=== PATIENT | male | born 1960 | race Caucasian/White ===

== ENCOUNTER → 2018-03-02 | Outpatient (CLI) | payer BC ==
--- NOTE | 2018-03-03 09:17 | PCVCIMAG ---
APPROVED REPORT Study performed: 03/02/2018 15:41:09 Exam: Stress Echocardiogram Indication: Chest pressure,fatigue, Patient Location: Echo lab Stress Nurse: Rubina Nesbitt RN Room #: 2 Status: routine Ht: 5 ft 11 in HR: 72 bpm BP: 100/70 mmHg Rhythm: NSR with T wave abnormality Medical History Medical History: No history of CAD Cardiac Risk Factors: FHX of CAD Previous Cardiac Procedures: none Pretest Chest Pain Characteristics: No chest pain Exercise History: Physically active Procedure The patient underwent an Exercise Stress Test using the Constantino Protocol. Blood pressure, heart rate, and EKG were monitored. An Echocardiogram was performed by mix technician in four stages in quad fashion. At peak stress, four selected images were obtained and placed side by side with resting images for comparison. Stress Test Details Stress Test: Exercise stress testing was performed using a Constantino protocol. HR Resting HR: 72 bpmMax Heart Rate (APMHR): 164 bpm Max HR Achieved: 162 bpmTarget HR (85% APMHR): 139 bpm % of APMHR: 98 Recovery HR: 96 bpm HR response to stress: Normal HR response to stress BP Resting BP: 100/70 mmHg Max BP: 120/68 mmHg Recovery BP: 126/60 mmHg ECG Resting ECG: Sinus Rhythm, nonspecific T abnormalities Stress ECG: Sinus Rhythm, nonspecific T abnormalities ST Change: Non-ischemic Arrhythmia: Rare PVCs Recovery ECG: Sinus Rhythm, nonspecific ST-T abnormalities Recovery ST Change: Non-ischemic Recovery Arrhythmia: None Clinical Reason for Termination: Maximal effort Stress Symptoms: none Exercise duration: 13 min sec Highest Stage Achieved: Stage 5: 5.0 mph at 18% grade. Exercise capacity: 17.2 METs Overall Exercise Capacity for Age: Excellent Scale: Active Angina Score: None No complications. Stress ECG Conclusion The patient exercised according to the CONSTANTINO protocol for 13:00 mins; achieving a work level of 17.2 METS. The resting heart rate of 72bpm blanquita to a maximum heart rate of 162 bpm. This value represent 98% of the maximal, age-predicted heart rate. The resting blood pressure of 100/70 mmHg, blanquita to a maximum blood pressure of 126/68 mmHg. The exercise test was stopped due to fatigue. Pre-Stress Echo The resting Echocardiogram showed normal left ventricular contractility with an estimated Ejection Fraction of about 55-60%. Normal wall motion in all segments on baseline images. Post-Stress Echo The stress Echocardiogram showed normal left ventricular contractility with an estimated Ejection Fraction of about 65-70%. Normal augmentation of wall motion in all segments on post stress images. Clinical No clinical or ECG evidence for ischemia. Conclusion Clinical Response: Non-ischemic Exercise Capacity: Superior Stress ECG Response: Non-ischemic Stress Echo Images: Non-ischemic No clinical, EKG or echocardiographic evidence for ischemia. No echocardiographic evidence for exercise induced ischemia. Normal stress echocardiogram with maximal exercise stress. <Conclusion> No clinical, EKG or echocardiographic evidence for ischemia. No echocardiographic evidence for exercise induced ischemia. Normal stress echocardiogram with maximal exercise stress.
== END | disposition home or self-care (01) ==
LOC: PCVCIMAG 16:26
PROVIDERS: ATTEND Internal Medicine Cardiovascular Disease
DX: R07.89 Other chest pain (principal); R53.83 Other fatigue
CPT/HCPCS: 93325; 93351